=== PATIENT | female | born 1990 | race Caucasian/White ===

== ENCOUNTER 2017-12-02 20:34 | Emergency (ER) | payer MEDICAID ==
[2017-12-02] MEDS ORDERED: Sodium Chloride 0.9% 1,000 ML IV ONE (20:39)
[2017-12-02] MEDS ORDERED: Ondansetron 4 MG/2 ML SDV IVPUSH ONE (20:39)
--- NOTE | 2017-12-02 20:50 | EDM.PDOC ---
<Demario Card E - Last Filed: 12/02/17 21:44> ED HPI GENERAL MEDICAL PROBLEM - General Chief Complaint: Respiratory Problem Stated Complaint: PT HAS DIFFICULTY BREATHING Time Seen by Provider: 12/02/17 20:40 Source of Information: Reports: Patient History Limitations: Reports: No Limitations - History of Present Illness INITIAL COMMENTS - FREE TEXT/NARRATIVE: HISTORY AND PHYSICAL: History of present illness: Patient is a 27-year-old female who presents to the emergency room by EMS with complaints of anxiety and shortness of breath. Patient states she has been following a keto diet and received a new package of keto friendly supplements. This morning she tried this coffee based supplement for the first time. She states that since taking this had felt jittery and anxious. She noted she had been breathing heavy throughout the day. Within the last hour she noted her hands becoming tight and felt more anxious. She called EMS for transport to the ED. Review of systems: As per history of present illness and below otherwise all systems reviewed and negative. Past medical history: As per history of present illness and as reviewed below otherwise noncontributory. Surgical history: As per history of present illness and as reviewed below otherwise noncontributory. Social history: No reported history of drug or alcohol abuse. Family history: As per history of present illness and as reviewed below otherwise noncontributory. Physical exam: General: Well-developed and well-nourished 17-year-old female. Alert and oriented. Nontoxic appearing and in no acute distress. HEENT: Atraumatic, normocephalic, pupils equal and reactive bilaterally, negative for conjunctival pallor or scleral icterus, mucous membranes moist, throat clear, neck supple, nontender, trachea midline. No drooling or trismus noted. No meningeal signs Lungs: Clear to auscultation, breath sounds equal bilaterally, chest nontender. Heart: S1S2, regular rate and rhythm without overt murmur Abdomen: Soft, nondistended, nontender. Negative for masses or hepatosplenomegaly. Negative for costovertebral tenderness. Pelvis: Stable nontender. Genitourinary: Deferred. Rectal: Deferred. Skin: Intact, warm, dry. No lesions or rashes noted. Extremities: Carpopedal spasm bilateral hands (they are easily pulled open). Pursed lips. Moves all per self without difficulty. She is negative for cords or calf pain. Neurovascular unremarkable. Neuro: Awake, alert, oriented. Cranial nerves II through XII unremarkable. Cerebellum unremarkable. Motor and sensory unremarkable throughout. Exam nonfocal. Notes: Patient's carpopedal spasms have resolved. She states she feels tight to the right side of her mouth. States she still feels "strange". Dr Araiza has taken over care on this patient at 2200. Partial labs and imagining results are pending. Diagnostics: CBC, CMP, UA, EKG, Head CT, HCGU, TSH Therapeutics: IV fluids, Ativan Impression: Plan: Definitive disposition and diagnosis as appropriate pending reevaluation and review of above. Onset: Today - Related Data Allergies Allergy/AdvReac Type Severity Reaction Status Date / Time Sulfa (Sulfonamide Allergy Seizure Verified 12/02/17 20:46 Antibiotics) Home Meds: Home Meds Lisdexamfetamine Dimesylate [Vyvanse] 50 mg PO DAILY 12/02/17 [History] Course - Vital Signs Last Recorded V/S: Last Vital Signs Temp 97.6 F 12/02/17 22:22 Pulse 90 12/02/17 22:22 Resp 16 12/02/17 22:22 BP 130/75 12/02/17 22:22 Pulse Ox 99 12/02/17 22:22 - Orders/Labs/Meds Orders: Active Orders 24 hr Category Date Time Status EKG Documentation Completion [RC] STAT Care 12/02/17 20:39 Active Chest 1V Frontal [CR] Stat Exams 12/02/17 20:39 Taken Head wo Cont [CT] Stat Exams 12/02/17 21:33 Taken TSH [CHEM] Stat Lab 12/02/17 21:46 Ordered Labs: Laboratory Tests 12/02/17 12/02/17 12/02/17 Range/Units 20:40 20:40 20:40 WBC 11.25 H (4.0-11.0) K/uL RBC 4.64 (4.30-5.90) M/uL Hgb 14.2 (12.0-16.0) g/dL Hct 41.3 (36.0-46.0) % MCV 89.0 (80.0-98.0) fL MCH 30.6 (27.0-32.0) pg MCHC 34.4 (31.0-37.0) g/dL RDW Std Deviation 42.7 (28.0-62.0) fl RDW Coeff of Toya 13 (11.0-15.0) % Plt Count 332 (150-400) K/uL MPV 9.90 (7.40-12.00) fL Neut % (Auto) 76.0 (48.0-80.0) % Lymph % (Auto) 16.8 (16.0-40.0) % [place] % (Auto) 6.7 (0.0-15.0) % Eos % (Auto) 0.2 (0.0-7.0) % Baso % (Auto) 0.3 (0.0-1.5) % Neut # (Auto) 8.6 H (1.4-5.7) K/uL Lymph # (Auto) 1.9 (0.6-2.4) K/uL [place] # (Auto) 0.8 (0.0-0.8) K/uL Eos # (Auto) 0.0 (0.0-0.7) K/uL Baso # (Auto) 0.0 (0.0-0.1) K/uL Nucleated RBC % 0.0 /100WBC Nucleated RBCs # 0 K/uL D-Dimer, Quantitative < 0.19 (0.0-0.52) mg/LFEU Sodium 137 (136-145) mmol/L Potassium 3.5 (3.5-5.1) mmol/L Chloride 100 (98-107) mmol/L Carbon Dioxide 20.6 L (21.0-32.0) mmol/L BUN 15 (7.0-18.0) mg/dL Creatinine 1.0 (0.6-1.0) mg/dL Est Cr Clr Drug Dosing 71.68 mL/min Estimated GFR (MDRD) > 60.0 ml/min Glucose 95 (74-106) mg/dL Calcium 9.8 (8.5-10.1) mg/dL Total Bilirubin 0.5 (0.2-1.0) mg/dL AST 59 H (15-37) IU/L ALT 115 H (14-63) IU/L Alkaline Phosphatase 79 (46-116) U/L Total Protein 8.1 (6.4-8.2) g/dL Albumin 4.6 (3.4-5.0) g/dL Globulin 3.5 (2.0-3.5) g/dL Albumin/Globulin Ratio 1.3 (1.3-2.8) Urine Color Urine Appearance Urine pH (5.0-8.0) Ur Specific [place] (1.001-1.035) Urine Protein (NEGATIVE) mg/dL Urine Glucose (UA) (NEGATIVE) mg/dL Urine Ketones (NEGATIVE) mg/dL Urine Occult Blood (NEGATIVE) Urine Nitrite (NEGATIVE) Urine Bilirubin (NEGATIVE) Urine Urobilinogen (<2.0) EU/dL Ur Leukocyte Esterase (NEGATIVE) Urine RBC (0-2/HPF) Urine WBC (0-5/HPF) Ur Epithelial Cells (NONE-FEW) Urine Bacteria (NEGATIVE) Urine HCG, Qual (NEGATIVE) 12/02/17 12/02/17 Range/Units 21:57 21:57 WBC (4.0-11.0) K/uL RBC (4.30-5.90) M/uL Hgb (12.0-16.0) g/dL Hct (36.0-46.0) % MCV (80.0-98.0) fL MCH (27.0-32.0) pg MCHC (31.0-37.0) g/dL RDW Std Deviation (28.0-62.0) fl RDW Coeff of Toya (11.0-15.0) % Plt Count (150-400) K/uL MPV (7.40-12.00) fL Neut % (Auto) (48.0-80.0) % Lymph % (Auto) (16.0-40.0) % [place] % (Auto) (0.0-15.0) % Eos % (Auto) (0.0-7.0) % Baso % (Auto) (0.0-1.5) % Neut # (Auto) (1.4-5.7) K/uL Lymph # (Auto) (0.6-2.4) K/uL [place] # (Auto) (0.0-0.8) K/uL Eos # (Auto) (0.0-0.7) K/uL Baso # (Auto) (0.0-0.1) K/uL Nucleated RBC % /100WBC Nucleated RBCs # K/uL D-Dimer, Quantitative (0.0-0.52) mg/LFEU Sodium (136-145) mmol/L Potassium (3.5-5.1) mmol/L Chloride (98-107) mmol/L Carbon Dioxide (21.0-32.0) mmol/L BUN (7.0-18.0) mg/dL Creatinine (0.6-1.0) mg/dL Est Cr Clr Drug Dosing mL/min Estimated GFR (MDRD) ml/min Glucose (74-106) mg/dL Calcium (8.5-10.1) mg/dL Total Bilirubin (0.2-1.0) mg/dL AST (15-37) IU/L ALT (14-63) IU/L Alkaline Phosphatase (46-116) U/L Total Protein (6.4-8.2) g/dL Albumin (3.4-5.0) g/dL Globulin (2.0-3.5) g/dL Albumin/Globulin Ratio (1.3-2.8) Urine Color YELLOW Urine Appearance CLEAR Urine pH 7.0 (5.0-8.0) Ur Specific [place] 1.020 (1.001-1.035) Urine Protein NEGATIVE (NEGATIVE) mg/dL Urine Glucose (UA) NEGATIVE (NEGATIVE) mg/dL Urine Ketones 15 H (NEGATIVE) mg/dL Urine Occult Blood NEGATIVE (NEGATIVE) Urine Nitrite NEGATIVE (NEGATIVE) Urine Bilirubin NEGATIVE (NEGATIVE) Urine Urobilinogen 0.2 (<2.0) EU/dL Ur Leukocyte Esterase NEGATIVE (NEGATIVE) Urine RBC 0-2 (0-2/HPF) Urine WBC 0-2 (0-5/HPF) Ur Epithelial Cells MODERATE (NONE-FEW) Urine Bacteria RARE (NEGATIVE) Urine HCG, Qual NEGATIVE (NEGATIVE) Meds: Medications Discontinued Medications Generic Name Dose Route Start Last Admin Trade Name Freq PRN Reason Stop Dose Admin Sodium Chloride 1,000 mls @ 999 mls/hr 12/02/17 20:39 12/02/17 20:48 Normal Saline IV 12/02/17 21:39 999 mls/hr STAT ONE Administration Lorazepam 1 mg 12/02/17 21:04 12/02/17 21:18 Ativan IVPUSH 12/02/17 21:05 1 mg ONETIME ONE Administration Ondansetron HCl 4 mg 12/02/17 20:39 12/02/17 20:48 Zofran IVPUSH 12/02/17 20:40 4 mg ONETIME ONE Administration Departure - Departure Disposition: Home, Self-Care 01 Clinical Impression: Anxiety attack - Discharge Information Forms: ED Department Discharge Additional Instructions: My general discharge The following information is given to patients seen in the emergency department who are being discharged to home. This information is to outline your options for follow-up care. We provide all patients seen in our emergency department with a follow-up referral. The need for follow-up, as well as the timing and circumstances, are variable depending upon the specifics of your emergency department visit. If you don't have a primary care physician on staff, we will provide you with a referral. We always advise you to contact your personal physician following an emergency department visit to inform them of the circumstance of the visit and for follow-up with them and/or the need for any referrals to a consulting specialist. The emergency department will also refer you to a specialist when appropriate. This referral assures that you have the opportunity for follow-up care with a specialist. All of these measure are taken in an effort to provide you with optimal care, which includes your follow-up. Under all circumstances we always encourage you to contact your private physician who remains a resource for coordinating your care. When calling for follow-up care, please make the office aware that this follow-up is from your recent emergency room visit. If for any reason you are refused follow-up, please contact the [facility] Emergency Department at and asked to speak to the emergency department charge nurse. [facility] [address] [place] [id number] [facility] [address] [place] [phone] Please call one of the above numbers and follow-up with a primary care provider. Be sure to tell me them you were seen in the emergency department and they wish for you to be seen as soon as possible. Refrain from supplement use. Return to emergency department if any new or worsening symptoms. <Jai Araiza - Last Filed: 12/02/17 22:34> ED HPI GENERAL MEDICAL PROBLEM - General Source of Information: Reports: Patient History Limitations: Reports: No Limitations - History of Present Illness INITIAL COMMENTS - FREE TEXT/NARRATIVE: Dr. Araiza taking over patient care at 2200. I have reviewed history, labs, and radiologic findings and agree with the above. I personally examined the patient. CBC, CMP, UA, EKG, head CT, hCG, TSH were all unremarkable. Patient was likely having a panic attack secondary to her supplement combined with her Vyvanse. I did discuss this at length with her. She should refrain from using the supplement again and follow-up with her primary care provider. She recently moved here so we supplied her with information to follow-up as soon as possible. I also instructed her to return to emergency department if she has any new or worsening symptoms. ED ROS GENERAL - Review of Systems Review Of Systems: ROS reveals no pertinent complaints other than HPI. ED EXAM, GENERAL - Physical Exam Exam: See Below Departure - Departure Time of Disposition: 22:32 Condition: Good
[2017-12-02] MEDS ORDERED: LORazepam 2 MG/ML SDV IVPUSH ONE (21:04)
[2017-12-02 21:14] LABS: CHLORIDE,CL 100 mmol/L (98-107); SODIUM,NA 137 mmol/L (136-145)
--- NOTE | 2017-12-03 11:16 | CR ---
EXAM DATE: 12/02/17 PATIENT'S AGE: 27 Patient: CARLOS RENDON Facility: [place], [place] Site . Site : 1990 Study: XRay Chest [id number]/26/2018 9:14:30 PM Ordering Physician: Doctor Crenshaw Final Report: Indication: SOB Technique: Chest 1 view Comparison: None Findings/Impression: Cardiovascular and mediastinum: Heart size and vasculature are normal in caliber and appearance. Mediastinum is within normal limits. Lungs and pleural space: Lungs are clear. No sign of infiltrate or mass. No sign of pleural effusion. No pneumothorax. Bones and soft tissues: No significant findings. Dictated by Fahad Fabian MD @ 12/02/2017 9:35:28 PM Dictated by: Fahad Fabian MD @ 12/02/2017 21:35:35 (Electronic Signature) Report Signed by Proxy. IN[facility]
--- NOTE | 2017-12-03 11:17 | CT ---
EXAM DATE: 12/02/17 PATIENT'S AGE: 27 Patient: CARLOS RENDON Facility: [place], [place] Site . Site : 1990 Study: CT Head [id number]/26/2018 9:59:58 PM Ordering Physician: Doctor Crenshaw Final Report: INDICATION: Headache, Dizzy TECHNIQUE: CT Head without contrast. COMPARISON: None. FINDINGS: CSF spaces: Within normal limits for age. Brain parenchyma: The griffith-white differentiation is normal. No sign of mass, hemorrhage, or midline shift. Skull base and calvarium: The visualized paranasal sinuses and mastoid air cells are clear. The visualized orbits are grossly unremarkable. No skull fractures. IMPRESSION: Unremarkable noncontrast head CT. Please note that all CT scans at this facility use dose modulation, iterative reconstruction, and/or weight-based dosing when appropriate to reduce radiation dose to as low as reasonably achievable. Dictated by: Sean Valderrama MD @ 12/02/2017 22:08:06 (Electronic Signature) Report Signed by Proxy. BELLEVUE HOSPITALLuisana
== END 2017-12-02 22:45 | disposition home or self-care (01) ==
LOC: MW.ED 20:34
DX: F41.9 Anxiety disorder, unspecified (principal); R29.0 Tetany; Z88.2 Allergy status to sulfonamides
CPT/HCPCS: 36415; 70450; 71045; 80053; 81001; 81025; 84443; 85025; 85379; 96361; 96374; 96375; 99285; J2060; J2405; J7040

== ENCOUNTER 2018-07-14 19:56 | Emergency (ER) | payer MEDICAID ==
[2018-07-14] MEDS ORDERED: Morphine 2 MG/ML Syringe IVPUSH ONE (21:44)
[2018-07-14] MEDS ORDERED: Sodium Chloride 0.9% 1,000 ML IV ONE (21:44)
[2018-07-14] MEDS ORDERED: Ondansetron 4 MG/2 ML SDV IVPUSH ONE (21:44)
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
[2018-07-14 23:08] LABS: CHLORIDE,CL 105 mmol/L (98-107); SODIUM,NA 143 mmol/L (136-145)
[2018-07-15] MEDS ORDERED: Acetaminophen 500 MG Tab PO ONE (00:04)
== END 2018-07-15 01:00 ==
LOC: MW.ED 19:56
DX: M54.5 Low back pain (principal); R53.1 Weakness; Z88.2 Allergy status to sulfonamides
CPT/HCPCS: 36415; 80053; 84703; 85025; 96361; 96374; 96375; 99285; A9270; J2270; J2405; J7040; 99284